=== PATIENT | female | born 1935 | race Caucasian/White ===

== ENCOUNTER 2020-02-26 09:00 | Observation (INO) ==
[2020-02-26 09:28] LABS: Basophils % 0.4 % (0.0-0.8); Eosinophils # 0.7 10*3/uL (0.0-0.87); Eosinophils % 8.1 % (0.00-10.9); Hematocrit 39.3 VOL% (35.7-47.0); Hemoglobin 13.5 GM/DL (12.0-16.0); Immature Granulocytes % 0.5 %; Immature Granulocytes Absolute 0.04 #; Lymphocytes # 1.6 10*3/uL (1.4-4.0); Lymphocytes % 19.1 % (21.3-54.2); Mean Corpuscular HGB Conc 34.4 GM/DL (32-36); Mean Corpuscular Volume 98.3 FL (87-102); Mean Platelet Volume 10.7 FL (9.6-12.0); Monocytes % 8.3 % (1.7-12.7); Neutrophils % 63.6 % (38.7-73.9); Platelet Count 180 T/CUMM (130-400); White Blood Count 8.6 T/CUMM (4-12)
[2020-02-26 10:03] LABS: Alanine Aminotransferase < 6 U/L (13-56); Albumin 3.8 G/DL (3.4-5.0); Alkaline Phosphatase 79 U/L (45-117); Aspartate Amino Transferase 19 U/L (0-37); Blood Urea Nitrogen 18 MG/DL (7-18); Calcium 8.9 MG/DL (8.5-10.1); Estimated Glom Filtration Rate 61 ML/MIN; Glucose 83 MG/DL (74-106); Osmolality,Calculated 275.7 MOS/KG (273-304); Total Protein 6.6 G/DL (6.4-8.3)
[2020-02-26] MEDS ORDERED: GLUCAGON 1 MG VIAL IM PRN (12:19)
[2020-02-26] MEDS ORDERED: DEXTROSE 50% 25 GM/50 ML VIAL IV PRN (12:19)
[2020-02-26] MEDS ORDERED: DOCUSATE SODIUM 100 MG CAPSULE PO PRN (12:19)
[2020-02-26] MEDS ORDERED: ONDANSETRON 4 MG/2 ML VIAL IV PRN (12:19)
[2020-02-26] MEDS ORDERED: ACETAMINOPHEN 325 MG TABLET PO PRN (12:19)
[2020-02-26] MEDS ORDERED: SENNA 8.6 MG TABLET PO PRN (12:23)
[2020-02-26] MEDS ORDERED: METHOCARBAMOL 500 MG TABLET PO PRN (12:25)
[2020-02-26 12:44] LABS: Bacteria,Urine Occasional /HPF (Few); Bilirubin,Urine Negative (Negative); Blood, Urine Negative (Negative); Glucose,Urine (UA) Negative (Negative); Hyaline Casts,Urine 1 /LPF (0-3); Ketones,Urine 5 mg/dL (Negative); Mucus,Urine Occasional /LPF (Occasional); Nitrite,Urine Negative (Negative); Protein,Urine Negative; RBC,Urine 1 /HPF (0-4); Squamous Epithelial Cell,Urine Occasional /HPF (0-10); Urine Appearance Slightly Hazy (Clear); Urine Color Yellow (Yellow); Urine Specific Gravity 1.011 (1.001-1.035); Urine Urobilinogen < 2.0 EU/DL (0.2-1.0); WBC,Urine 5 /HPF (0-6)
[2020-02-26 13:32] LABS: Free T4 (Free Thyroxine) 1.16 NG/DL (0.76-1.46)
[2020-02-26] MEDS: ENOXAPARIN 40 MG/0.4 ML SYRINGE SUBCUT SCH (14:16)
[2020-02-26] MEDS: cefTRIAXone 1,000 MG in SYRINGE 1 EACH IV SCH (14:16)
[2020-02-26] MEDS: CARBIDOPA/LEVODOPA 25-100 MG TABLET PO SCH ×2 (14:16→20:43)
[2020-02-26] MEDS: ASPIRIN EC 325 MG TABLET PO SCH (14:32)
[2020-02-27] MEDS: CARBIDOPA/LEVODOPA 25-100 MG TABLET PO SCH ×3 (05:24→20:21)
[2020-02-27 05:40] LABS: Basophils % 0.4 % (0.0-0.8); Eosinophils # 0.9 10*3/uL (0.0-0.87); Eosinophils % 11.8 % (0.00-10.9); Hematocrit 42.9 VOL% (35.7-47.0); Hemoglobin 14.5 GM/DL (12.0-16.0); Immature Granulocytes % 0.4 %; Immature Granulocytes Absolute 0.03 #; Lymphocytes # 2.1 10*3/uL (1.4-4.0); Mean Corpuscular HGB Conc 33.8 GM/DL (32-36); Mean Corpuscular Volume 99.5 FL (87-102); Mean Platelet Volume 11.3 FL (9.6-12.0); Monocytes % 8.5 % (1.7-12.7); Neutrophils % 50.9 % (38.7-73.9); Platelet Count 178 T/CUMM (130-400); Red Blood Count 4.31 MC/CUMM (3.8-5.5); Red Cell Distribution Width 12.1 % (9.3-17.3); White Blood Count 7.6 T/CUMM (4-12)
[2020-02-27 05:58] LABS: Alanine Aminotransferase < 6 U/L (13-56); Albumin 3.7 G/DL (3.4-5.0); Alkaline Phosphatase 73 U/L (45-117); Aspartate Amino Transferase 21 U/L (0-37); Blood Urea Nitrogen 16 MG/DL (7-18); Calcium 9.4 MG/DL (8.5-10.1); Estimated Glom Filtration Rate 53 ML/MIN; Glucose 91 MG/DL (74-106); Osmolality,Calculated 281.3 MOS/KG (273-304)
[2020-02-27 06:04] LABS: Calcium 9.2 MG/DL (8.5-10.1); Risk Ratio 2.18; Thyroid Stimulating Hormone 4.8 uIU/ml (0.358-3.74); VLDL CHOLESTEROL 14.6 MG/DL
[2020-02-27 06:14] LABS: Eosinophils 12 % (0-10); Lymphocytes 30 % (20-55); Platelet Estimate Adequate; Segmented Neutrophils 52 % (50-85); Total Cells Counted 100
[2020-02-27 06:15] LABS: Hypochromasia 1+
[2020-02-27] MEDS: RASAGILINE 0.5 MG TABLET PO SCH (10:10)
[2020-02-27] MEDS: LEVOTHYROXINE 88 MCG TABLET PO SCH (10:10)
[2020-02-27] MEDS: FLUDROCORTISONE 0.1 MG TABLET PO SCH (10:10)
[2020-02-27] MEDS: ASPIRIN EC 325 MG TABLET PO SCH (10:10)
[2020-02-27] MEDS: ENOXAPARIN 40 MG/0.4 ML SYRINGE SUBCUT SCH (12:20)
[2020-02-27] MEDS: cefTRIAXone 1,000 MG in SYRINGE 1 EACH IV SCH (12:42)
[2020-02-28] MEDS: CARBIDOPA/LEVODOPA 25-100 MG TABLET PO SCH (05:56)
[2020-02-28 07:12] LABS: Alanine Aminotransferase < 6 U/L (13-56); Albumin 3.2 G/DL (3.4-5.0); Alkaline Phosphatase 66 U/L (45-117); Aspartate Amino Transferase 19 U/L (0-37); Blood Urea Nitrogen 19 MG/DL (7-18); Estimated Glom Filtration Rate 71 ML/MIN; Glucose 86 MG/DL (74-106); Osmolality,Calculated 277.5 MOS/KG (273-304); Total Protein 6.5 G/DL (6.4-8.3)
[2020-02-28 08:13] VITALS: BP 134/61
[2020-02-28] MEDS: LEVOTHYROXINE 88 MCG TABLET PO SCH (09:37)
[2020-02-28] MEDS: ASPIRIN EC 325 MG TABLET PO SCH (09:37)
[2020-02-28] MEDS: FLUDROCORTISONE 0.1 MG TABLET PO SCH (09:37)
[2020-02-28] MEDS: RASAGILINE 0.5 MG TABLET PO SCH (09:37)
== END 2020-02-28 11:22 | disposition home health service (06) ==
LOC: N.EDINP 09:00 → N.ED 09:00 → N.TELEN 13:03
PROVIDERS: ADMIT Hospitalist; ATTEND Hospitalist